=== PATIENT | male | born 1980 | race Caucasian/White ===

== ENCOUNTER 2019-03-25 19:33 | Inpatient (IN) | payer MEDICAID, OTHER ==
[~2019-03-25] VITALS: Ht 177.8 cm; Wt 99.0 kg
[2019-03-25 20:13] LABS: BASOPHILS % (AUTO) 0.3 % (0.0-2.0); EOSINOPHILS % (AUTO) 0.3 % (1.0-6.0); HEMATOCRIT 43.2 % (41-53); HEMOGLOBIN 14.5 g/dL (13.5-17.5); LYMPHOCYTES # (AUTO) 1.4 K/uL (1.0-4.8); LYMPHOCYTES % (AUTO) 11.1 % (22.0-44.0); MEAN CORPUSCULAR HEMOGLOBIN 29.2 pg (26.0-34.0); MEAN CORPUSCULAR HGB CONC 33.5 G/dL (31.0-37.0); MEAN CORPUSCULAR VOLUME 87 fL (80-100); MONOCYTES % (AUTO) 8.1 % (2.0-9.0); NEUTROPHILS # (AUTO) 9.9 K/uL (1.8-7.7); NEUTROPHILS % (AUTO) 80.2 % (40.0-70.0); PLATELET COUNT (AUTO) 233 K/uL (150-450); RED BLOOD CELL COUNT(AUTO) 4.97 MIL/uL (4.50-5.90); RED CELL DISTRIBUTION WIDTH 13.6 % (11.5-14.5)
[2019-03-25 20:23] LABS: ANION GAP 6 mmol/L (8-16); CALCIUM, TOTAL 9.4 mg/dL (8.8-10.5); CARBON DIOXIDE 32 mmol/L (22-29); CHLORIDE 102 mmol/L (98-107); CREATININE 1.48 mg/dL (0.60-1.30); GLOMERULAR FILTR. RATE CALC 53 mL/min (>60); GLUCOSE,RANDOM 98 mg/dL (70-110); POTASSIUM 3.6 mmol/L (3.5-5.1); SODIUM SERUM 140 mmol/L (136-145); UREA NITROGEN, BLOOD 21 mg/dL (7-18)
[2019-03-25] MEDS ORDERED: ESCI10TA PO (20:23)
[2019-03-25] MEDS ORDERED: RISP.5 PO (20:23)
[2019-03-25 20:29] LABS: ALANINE AMINOTRANSFERASE 66 U/L (12-78); ALKALINE PHOSPHATASE 197 U/L (46-116); ASPARTATE AMINOTRANSFERASE 41 U/L (15-37); BILIRUBIN,TOTAL 0.8 mg/dL (0.1-1.0); TOTAL PROTEIN, SERUM 8.2 g/dL (6.4-8.2)
[2019-03-25 21:06] LABS: AMPHET/METH SCREEN,URINE NEGATIVE (NEGATIVE); BARBITURATE SCREEN, URINE NEGATIVE (NEGATIVE); BENZODIAZEPINES SCREEN,URINE NEGATIVE (NEGATIVE); CANNABINOID SCREEN,URINE NEGATIVE (NEGATIVE); COCAINE SCREEN,URINE NEGATIVE (NEGATIVE); METHADONE SCREEN, URINE NEGATIVE (NEGATIVE); OPIATE SCREEN,URINE NEGATIVE (NEGATIVE); PHENCYCLIDINE SCREEN,URINE NEGATIVE (NEGATIVE)
[2019-03-26 03:15] VITALS: BP 146/86
[2019-03-26] MEDS ORDERED: DOCUSATE SODIUM 100 MG CAPSULE PO PRN (07:15)
[2019-03-26] MEDS ORDERED: MAG HYDROX/AL HYDROX/SIMETH ES 30 ML SUSPENSION UDCUP PO PRN (07:15)
[2019-03-26] MEDS ORDERED: MAGNESIUM HYDROXIDE SUSPENSION 30 ML UDCUP PO PRN (07:15)
[2019-03-26] MEDS ORDERED: PETROLATUM,WHITE 28 GM JELLY TP PRN (07:15)
[2019-03-26] MEDS ORDERED: LOPERAMIDE HCL 2 MG CAPSULE PO PRN (07:15)
[2019-03-26] MEDS ORDERED: ACETAMINOPHEN 325 MG TABLET PO PRN (07:15)
[2019-03-26] MEDS ORDERED: ONDANSETRON HCL 4 MG TABLET PO PRN (07:15)
[2019-03-26] MEDS ORDERED: GuaiFENesin/D-METHORPHAN [SUGAR-FREE] 200-20MG/10 ML SYRUP UDCUP PO PRN (07:15)
[2019-03-26] MEDS ORDERED: CloNIDine HCL 0.1 MG TABLET PO PRN (07:15)
[2019-03-26] MEDS ORDERED: IBUPROFEN 400 MG TABLET PO PRN (07:15)
[2019-03-26] MEDS ORDERED: ALBUTEROL SULFATE HFA 90 MCG/PUFF 8 GM INHALER IH PRN (07:15)
[2019-03-26] MEDS: BACITRACIN 28.4 GM OINTMENT TP SCH ×2 (08:52→17:05)
[2019-03-26 09:33] VITALS: BP 140/95
[2019-03-26 16:00] VITALS: BP 138/88
[2019-03-27 06:38] VITALS: BP 140/71
[2019-03-27 08:51] LABS: ALANINE AMINOTRANSFERASE 50 U/L (12-78); ALBUMIN 3.4 g/dL (3.4-5.0); ALKALINE PHOSPHATASE 173 U/L (46-116); ANION GAP 7 mmol/L (8-16); ASPARTATE AMINOTRANSFERASE 36 U/L (15-37); BILIRUBIN,TOTAL 0.6 mg/dL (0.1-1.0); CALCIUM, TOTAL 8.8 mg/dL (8.8-10.5); CARBON DIOXIDE 35 mmol/L (22-29); CHLORIDE 103 mmol/L (98-107); CHOL/HDL RATIO 6.3 (4.2-7.3); CHOLESTEROL 219 mg/dL (131-200); CREATININE 1.14 mg/dL (0.60-1.30); GLOMERULAR FILTR. RATE CALC > 60 mL/min (>60); GLUCOSE,RANDOM 103 mg/dL (70-110); HDL CHOLESTEROL 35 mg/dL (40-60); LDL CHOL (CALC.) 149 mg/dL (0-130); POTASSIUM 3.4 mmol/L (3.5-5.1); SODIUM SERUM 145 mmol/L (136-145); THYROID STIMULATING HORMONE 2.15 uIU/mL (0.36-3.74); TOTAL PROTEIN, SERUM 7.1 g/dL (6.4-8.2); TRIGLYCERIDES 176 mg/dL (15-150); UREA NITROGEN, BLOOD 12 mg/dL (7-18)
[2019-03-27 08:56] VITALS: BP 149/78
[2019-03-27] MEDS: BACITRACIN 28.4 GM OINTMENT TP SCH ×2 (09:06→16:28)
[2019-03-27] MEDS: BuPROPion HCL XL 150 MG ER TABLET PO SCH (10:41)
[2019-03-27] MEDS: OLANZapine 5 MG TABLET PO SCH ×2 (10:41→16:28)
[2019-03-27 16:00] VITALS: BP 136/87
[2019-03-27] MEDS: LORazepam 2 MG TABLET PO PRN (16:28)
[2019-03-28 06:46] VITALS: BP_SYST 127; BP_SYST 136; BP_DIAS 77; BP_DIAS 82
[2019-03-28 08:32] VITALS: BP 137/79
[2019-03-28] MEDS: BuPROPion HCL XL 150 MG ER TABLET PO SCH (08:32)
[2019-03-28] MEDS: BACITRACIN 28.4 GM OINTMENT TP SCH ×2 (08:32→16:53)
[2019-03-28] MEDS: OLANZapine 5 MG TABLET PO SCH ×2 (08:32→16:53)
[2019-03-28 16:02] VITALS: BP 138/89
[2019-03-28] MEDS: LORazepam 2 MG TABLET PO PRN (16:53)
[2019-03-29 00:34] VITALS: BP 141/97
[2019-03-29 08:30] VITALS: BP 132/82
[2019-03-29] MEDS: BuPROPion HCL XL 150 MG ER TABLET PO SCH (09:05)
[2019-03-29] MEDS: BACITRACIN 28.4 GM OINTMENT TP SCH ×2 (09:05→16:43)
[2019-03-29] MEDS: OLANZapine 5 MG TABLET PO SCH (09:05)
[2019-03-29 16:19] VITALS: BP 140/84
[2019-03-29] MEDS: OLANZapine 7.5 MG TABLET PO SCH (16:42)
[2019-03-29] MEDS: LORazepam 2 MG TABLET PO PRN (16:43)
[2019-03-29] MEDS: ZOLPIDEM TARTRATE 10 MG TABLET PO PRN (21:38)
[2019-03-30 05:46] VITALS: BP 143/74
[2019-03-30 08:02] VITALS: BP 131/76
[2019-03-30 08:09] LABS: BASOPHILS % (AUTO) 0.3 % (0.0-2.0); EOSINOPHILS % (AUTO) 3.7 % (1.0-6.0); HEMATOCRIT 42.1 % (41-53); HEMOGLOBIN 13.9 g/dL (13.5-17.5); LYMPHOCYTES # (AUTO) 2.5 K/uL (1.0-4.8); LYMPHOCYTES % (AUTO) 35.1 % (22.0-44.0); MEAN CORPUSCULAR HEMOGLOBIN 29.5 pg (26.0-34.0); MEAN CORPUSCULAR VOLUME 89 fL (80-100); MONOCYTES # (AUTO) 0.5 K/uL (0.1-1.0); MONOCYTES % (AUTO) 6.6 % (2.0-9.0); NEUTROPHILS # (AUTO) 3.8 K/uL (1.8-7.7); NEUTROPHILS % (AUTO) 54.3 % (40.0-70.0); PLATELET COUNT (AUTO) 188 K/uL (150-450); RED BLOOD CELL COUNT(AUTO) 4.71 MIL/uL (4.50-5.90); RED CELL DISTRIBUTION WIDTH 13.5 % (11.5-14.5)
[2019-03-30] MEDS: OLANZapine 7.5 MG TABLET PO SCH (09:30)
[2019-03-30] MEDS: BuPROPion HCL XL 150 MG ER TABLET PO SCH (09:30)
[2019-03-30] MEDS: BACITRACIN 28.4 GM OINTMENT TP SCH ×2 (09:30→16:45)
[2019-03-30 16:13] VITALS: BP 135/89
[2019-03-30] MEDS: OLANZapine 10 MG TABLET PO SCH (16:46)
[2019-03-30] MEDS: HALOPERIDOL 5 MG TABLET PO PRN (16:46)
[2019-03-30] MEDS: LORazepam 2 MG TABLET PO PRN (16:46)
[2019-03-31 05:20] VITALS: BP 101/61
[2019-03-31 05:56] VITALS: BP 128/83
[2019-03-31 08:17] VITALS: BP 125/74
[2019-03-31] MEDS: OLANZapine 10 MG TABLET PO SCH ×2 (08:50→16:52)
[2019-03-31] MEDS: BuPROPion HCL XL 150 MG ER TABLET PO SCH (08:50)
[2019-03-31] MEDS: BACITRACIN 28.4 GM OINTMENT TP SCH ×2 (08:51→16:55)
[2019-03-31 16:20] VITALS: BP 133/86
[2019-03-31] MEDS: LORazepam 2 MG TABLET PO PRN (16:52)
[2019-03-31] MEDS: HALOPERIDOL 5 MG TABLET PO PRN (18:58)
[2019-03-31 19:05] VITALS: BP 140/82
[2019-03-31] MEDS: ZOLPIDEM TARTRATE 10 MG TABLET PO PRN (20:50)
[2019-04-01 06:14] VITALS: BP 107/65
[2019-04-01 08:00] VITALS: BP 111/63
[2019-04-01] MEDS: BuPROPion HCL XL 150 MG ER TABLET PO SCH (09:17)
[2019-04-01] MEDS: OLANZapine 10 MG TABLET PO SCH ×2 (09:17→16:52)
[2019-04-01] MEDS: BACITRACIN 28.4 GM OINTMENT TP SCH ×2 (09:18→16:52)
[2019-04-01] MEDS: LORazepam 2 MG TABLET PO PRN (14:46)
[2019-04-01 18:00] VITALS: BP 108/74
[2019-04-01] MEDS: ZOLPIDEM TARTRATE 10 MG TABLET PO PRN (20:42)
[2019-04-02 06:06] VITALS: BP 108/68
[2019-04-02 08:46] VITALS: BP 113/71
[2019-04-02] MEDS: OLANZapine 10 MG TABLET PO SCH (08:50)
[2019-04-02] MEDS ORDERED: BUPR-93 PO (08:50)
[2019-04-02] MEDS: BuPROPion HCL XL 150 MG ER TABLET PO SCH (08:50)
[2019-04-02] MEDS ORDERED: OLAN10TA3 PO (08:50)
[2019-04-02] MEDS: BACITRACIN 28.4 GM OINTMENT TP SCH (08:50)
== END 2019-04-02 10:10 | disposition home or self-care (01) | DRG 750 ==
LOC: EMS 19:35 → B3A 03-26 01:05
PROVIDERS: ADMIT Psychiatry & Neurology Psychiatry; ATTEND Psychiatry & Neurology Psychiatry
DX: F20.0 Paranoid schizophrenia (principal); R74.0 Nonspecific elevation of levels of transaminase and lactic acid dehydrogenase [LDH]; D72.829 Elevated white blood cell count, unspecified; F32.9 Major depressive disorder, single episode, unspecified; Z91.19 Patient's noncompliance with other medical treatment and regimen; Z79.899 Other long term (current) drug therapy
CPT/HCPCS: 84443; G0480

== ENCOUNTER 2019-05-03 18:51 | Emergency (ER) | payer MEDICAID, OTHER ==
[~2019-05-03] VITALS: Ht 177.8 cm; Wt 98.0 kg
[~2019-05-03 18:51] MED LIST: BUPR-93 PO; OLAN10TA3 PO
[2019-05-03] MEDS ORDERED: HYDR-4031 PO (19:02)
[2019-05-03] MEDS ORDERED: BENZ1TAB10 PO (19:02)
[2019-05-03] MEDS ORDERED: RISP3 PO (19:02)
[2019-05-03] MEDS ORDERED: ELVI1TAB3 PO (19:02)
[2019-05-03] MEDS ORDERED: TRAZ150 PO (19:02)
[2019-05-03 22:31] LABS: BASOPHILS % (AUTO) 0.4 % (0.0-2.0); EOSINOPHILS % (AUTO) 2.1 % (1.0-6.0); HEMATOCRIT 42.2 % (41-53); HEMOGLOBIN 13.9 g/dL (13.5-17.5); LYMPHOCYTES # (AUTO) 2.7 K/uL (1.0-4.8); LYMPHOCYTES % (AUTO) 38.6 % (22.0-44.0); MEAN CORPUSCULAR HEMOGLOBIN 29.1 pg (26.0-34.0); MEAN CORPUSCULAR HGB CONC 32.9 G/dL (31.0-37.0); MEAN CORPUSCULAR VOLUME 89 fL (80-100); MONOCYTES # (AUTO) 0.6 K/uL (0.1-1.0); MONOCYTES % (AUTO) 8.3 % (2.0-9.0); NEUTROPHILS # (AUTO) 3.5 K/uL (1.8-7.7); NEUTROPHILS % (AUTO) 50.6 % (40.0-70.0); PLATELET COUNT (AUTO) 169 K/uL (150-450); RED BLOOD CELL COUNT(AUTO) 4.77 MIL/uL (4.50-5.90); RED CELL DISTRIBUTION WIDTH 14.2 % (11.5-14.5)
[2019-05-03 22:44] LABS: ANION GAP 2 mmol/L (8-16); CALCIUM, TOTAL 9.3 mg/dL (8.8-10.5); CARBON DIOXIDE 30 mmol/L (22-29); CHLORIDE 103 mmol/L (98-107); CREATININE 1.22 mg/dL (0.60-1.30); GLOMERULAR FILTR. RATE CALC > 60 mL/min (>60); GLUCOSE,RANDOM 100 mg/dL (70-110); POTASSIUM 3.5 mmol/L (3.5-5.1); SODIUM SERUM 135 mmol/L (136-145); UREA NITROGEN, BLOOD 10 mg/dL (7-18)
[2019-05-03 22:50] LABS: ALANINE AMINOTRANSFERASE 48 U/L (12-78); ALBUMIN 3.5 g/dL (3.4-5.0); ALKALINE PHOSPHATASE 167 U/L (46-116); ASPARTATE AMINOTRANSFERASE 23 U/L (15-37); BILIRUBIN,TOTAL 0.4 mg/dL (0.1-1.0); TOTAL PROTEIN, SERUM 7.6 g/dL (6.4-8.2)
[2019-05-04] MEDS ORDERED: LORazepam 2 MG/ML VIAL IM ONE (00:30)
[2019-05-04] MEDS ORDERED: DiphenhydrAMINE HCL 50 MG/ML VIAL IM ONE (00:30)
[2019-05-04] MEDS ORDERED: HALOPERIDOL LACTATE 5 MG/ML VIAL IM ONE (00:30)
[2019-05-04 01:55] VITALS: BP 142/80
== END 2019-05-04 02:00 | disposition home or self-care (01) ==
LOC: EMS 18:52
DX: F41.9 Anxiety disorder, unspecified (principal); G47.00 Insomnia, unspecified
CPT/HCPCS: 36415; 80053; 85025; 96372; 99284; G0480; J1200; J1630; J2060

== ENCOUNTER 2022-01-16 16:59 | Inpatient (IN) | payer MEDICAID ==
[~2022-01-16] VITALS: Ht 177.8 cm; Wt 82.7 kg
[~2022-01-16 16:59] MED LIST changes: +BENZ1TAB96 PO; -BUPR-93 PO; +ELVI1TAB3 PO; +HYDR-4808 PO; -OLAN10TA3 PO; +RISP3TAB35 PO; +TRAZ150T80 PO
[2022-01-16] MEDS ORDERED: ACETAMINOPHEN 325 MG TABLET PO PRN (19:15)
[2022-01-16] MEDS ORDERED: HALOPERIDOL 5 MG TABLET PO PRN (19:15)
[2022-01-16] MEDS ORDERED: LORazepam 2 MG TABLET PO PRN (19:15)
[2022-01-16 19:38] VITALS: BP 135/89
[2022-01-17 02:16] LABS: GLUCOMETER DEV NAME(LOC) POC.BV
[2022-01-17 06:41] VITALS: BP 130/78
[2022-01-17 07:13] LABS: BASOPHILS % (AUTO) 0.3 % (0.0-2.0); EOSINOPHILS % (AUTO) 0.1 % (1.0-6.0); HEMATOCRIT 45.5 % (41-53); HEMOGLOBIN 15.6 g/dL (13.5-17.5); LYMPHOCYTES # (AUTO) 1.8 K/uL (1.0-4.8); LYMPHOCYTES % (AUTO) 17.3 % (22.0-44.0); MEAN CORPUSCULAR HEMOGLOBIN 30.4 pg (26.0-34.0); MEAN CORPUSCULAR HGB CONC 34.2 G/dL (31.0-37.0); MEAN CORPUSCULAR VOLUME 89 fL (80-100); MONOCYTES # (AUTO) 0.7 K/uL (0.1-1.0); MONOCYTES % (AUTO) 6.4 % (2.0-9.0); NEUTROPHILS # (AUTO) 7.9 K/uL (1.8-7.7); NEUTROPHILS % (AUTO) 75.9 % (40.0-70.0); PLATELET COUNT (AUTO) 208 K/uL (150-450); RED BLOOD CELL COUNT(AUTO) 5.11 MIL/uL (4.50-5.90); RED CELL DISTRIBUTION WIDTH 14.4 % (11.5-14.5)
[2022-01-17 07:35] LABS: ALANINE AMINOTRANSFERASE 56 U/L (12-78); ALBUMIN 4.2 g/dL (3.4-5.0); ALKALINE PHOSPHATASE 187 U/L (46-116); ANION GAP 7 mmol/L (8-16); ASPARTATE AMINOTRANSFERASE 36 U/L (15-37); BILIRUBIN,TOTAL 0.8 mg/dL (0.1-1.0); CALCIUM, TOTAL 9.5 mg/dL (8.8-10.5); CARBON DIOXIDE 31 mmol/L (22-29); CHLORIDE 97 mmol/L (98-107); CHOL/HDL RATIO 3.9 (4.2-7.3); CHOLESTEROL 234 mg/dL (131-200); CREATININE 0.89 mg/dL (0.60-1.30); FREE T4 (FREE THYROXINE) 1.33 ng/dL (0.76-1.46); GLOMERULAR FILTR. RATE CALC > 60 mL/min (>60); GLUCOSE,RANDOM 118 mg/dL (70-110); HDL CHOLESTEROL 60 mg/dL (40-60); LDL CHOL (CALC.) 158 mg/dL (0-130); POTASSIUM 3.9 mmol/L (3.5-5.1); SODIUM SERUM 135 mmol/L (136-145); THYROID STIMULATING HORMONE 1.36 uIU/mL (0.36-3.74); TOTAL PROTEIN, SERUM 8.8 g/dL (6.4-8.2); TRIGLYCERIDES 79 mg/dL (15-150); UREA NITROGEN, BLOOD 13 mg/dL (7-18)
[2022-01-17 08:35] VITALS: BP 148/100
[2022-01-17] MEDS ORDERED: HALOPERIDOL LACTATE 5 MG/ML VIAL ONE (09:48)
[2022-01-17] MEDS ORDERED: DiphenhydrAMINE HCL 50 MG/ML VIAL ONE (09:48)
[2022-01-17] MEDS ORDERED: LORazepam 2 MG/ML VIAL ONE (09:48)
[2022-01-17] MEDS ORDERED: DiphenhydrAMINE HCL 50 MG/ML VIAL IM ONE (10:15)
[2022-01-17] MEDS ORDERED: LORazepam 2 MG/ML VIAL IM ONE (10:15)
[2022-01-17] MEDS ORDERED: HALOPERIDOL LACTATE 5 MG/ML VIAL IM ONE (10:15)
[2022-01-17] MEDS ORDERED: OMEPRAZOLE 20 MG CAPSULE PO PRN (12:15)
[2022-01-17] MEDS ORDERED: ALBUTEROL SULFATE HFA 90 MCG/PUFF 8 GM INHALER IH PRN (12:15)
[2022-01-17] MEDS ORDERED: ELVITEG/COB/EMTRI/TENOF ALAFEN 150-150-200-10MG TABLET PO SCH (12:15)
[2022-01-17] MEDS ORDERED: IBUPROFEN 600 MG TABLET PO PRN (12:15)
[2022-01-17] MEDS ORDERED: BACITRACIN 28 GM OINTMENT TP PRN (12:15)
[2022-01-17] MEDS ORDERED: DOCUSATE SODIUM 100 MG CAPSULE PO PRN (12:15)
[2022-01-17] MEDS ORDERED: ONDANSETRON HCL 4 MG TABLET PO PRN (12:15)
[2022-01-17] MEDS ORDERED: LOPERAMIDE HCL 2 MG CAPSULE PO PRN (12:15)
[2022-01-17] MEDS ORDERED: ACETAMINOPHEN 325 MG TABLET PO PRN (12:15)
[2022-01-17] MEDS ORDERED: MAG HYDROX/AL HYDROX/SIMETH ES 30 ML SUSPENSION UDCUP PO PRN (12:15)
[2022-01-17] MEDS ORDERED: PETROLATUM,WHITE 28 GM JELLY TP PRN (12:15)
[2022-01-17] MEDS ORDERED: MAGNESIUM HYDROXIDE SUSPENSION 30 ML UDCUP PO PRN (12:15)
[2022-01-17] MEDS ORDERED: BENZOCAINE/MENTHOL LOZENGE PO PRN (12:15)
[2022-01-17] MEDS ORDERED: CloNIDine HCL 0.1 MG TABLET PO PRN (12:15)
[2022-01-17] MEDS ORDERED: OMEP20CA12 PO (12:37)
[2022-01-17] MEDS ORDERED: GABA-1181 PO (12:37)
[2022-01-17] MEDS ORDERED: DOLU1TAB2 PO (12:37)
[2022-01-17] MEDS ORDERED: RISP2TAB45 PO (12:37)
[2022-01-17] MEDS: DOLUTEGRAVIR SODIUM 50 MG TABLET PO SCH (16:31)
[2022-01-17 17:19] VITALS: BP 126/79
[2022-01-17] MEDS: RisperiDONE 3 MG TABLET PO SCH (20:17)
[2022-01-18 01:08] VITALS: BP 131/80
[2022-01-18 08:32] VITALS: BP 121/80
[2022-01-18] MEDS: DOLUTEGRAVIR SODIUM 50 MG TABLET PO SCH (09:25)
[2022-01-18] MEDS: RisperiDONE 3 MG TABLET PO SCH ×2 (09:25→20:26)
[2022-01-18 16:17] VITALS: BP 105/67
[2022-01-18] MEDS: ZOLPIDEM TARTRATE 10 MG TABLET PO PRN (21:37)
[2022-01-19 01:04] VITALS: BP 129/77
[2022-01-19 08:09] VITALS: BP 116/66
[2022-01-19] MEDS: DOLUTEGRAVIR SODIUM 50 MG TABLET PO SCH (08:32)
[2022-01-19] MEDS: RisperiDONE 3 MG TABLET PO SCH ×2 (08:33→20:24)
[2022-01-19 16:20] VITALS: BP 104/67
[2022-01-19] MEDS: ZOLPIDEM TARTRATE 10 MG TABLET PO PRN (20:24)
[2022-01-19] MEDS ORDERED: RISP3TAB63 PO (21:00)
[2022-01-20] VITALS: BP 120/82
[2022-01-20 07:27] LABS: HEMOGLOBIN 13.6 g/dL (13.5-17.5); MEAN CORPUSCULAR HEMOGLOBIN 30.5 pg (26.0-34.0); MEAN CORPUSCULAR VOLUME 90 fL (80-100); PLATELET COUNT (AUTO) 165 K/uL (150-450); RED BLOOD CELL COUNT(AUTO) 4.47 MIL/uL (4.50-5.90); RED CELL DISTRIBUTION WIDTH 14.2 % (11.5-14.5)
[2022-01-20 07:45] LABS: ANION GAP 3 mmol/L (8-16); CALCIUM, TOTAL 8.6 mg/dL (8.8-10.5); CARBON DIOXIDE 32 mmol/L (22-29); CHLORIDE 101 mmol/L (98-107); CREATININE 1.15 mg/dL (0.60-1.30); GLOMERULAR FILTR. RATE CALC > 60 mL/min (>60); GLUCOSE,RANDOM 83 mg/dL (70-110); PHOSPHORUS 3.9 mg/dL (2.5-4.9); POTASSIUM 3.4 mmol/L (3.5-5.1); SODIUM SERUM 136 mmol/L (136-145); UREA NITROGEN, BLOOD 20 mg/dL (7-18)
[2022-01-20 08:18] LABS: BAND NEUTROPHILS % (MANUAL) 1 % (0-5); LYMPHOCYTES % (MANUAL) 19 % (22-44); MONOCYTES % (MANUAL) 5 % (2-9); SEGMENTED NEUTROPHILS % 75 % (40-70)
[2022-01-20 08:25] VITALS: BP 152/65
[2022-01-20] MEDS: RisperiDONE 3 MG TABLET PO SCH (08:29)
[2022-01-20] MEDS: DOLUTEGRAVIR SODIUM 50 MG TABLET PO SCH (08:29)
[2022-01-20] MEDS ORDERED: ELVI1TAB3 PO (21:47)
[2022-01-20] MEDS ORDERED: EPIV100 PO (21:47)
== END 2022-01-20 12:00 | disposition home or self-care (01) | DRG 750 ==
LOC: B2S 19:05
PROVIDERS: ADMIT Psychiatry & Neurology Psychiatry; ATTEND Psychiatry & Neurology Psychiatry
DX: F25.9 Schizoaffective disorder, unspecified (principal); E78.5 Hyperlipidemia, unspecified; F41.9 Anxiety disorder, unspecified; Z20.822 Contact with and (suspected) exposure to COVID-19; G47.00 Insomnia, unspecified; I10 Essential (primary) hypertension; F15.10 Other stimulant abuse, uncomplicated; F12.10 Cannabis abuse, uncomplicated; K59.00 Constipation, unspecified; Z72.89 Other problems related to lifestyle; Z71.51 Drug abuse counseling and surveillance of drug abuser
CPT/HCPCS: 80048; 80053; 80061; 83735; 84100; 84439; 84443; 85007; 85025; 85027; J1200; J1630; J2060; Q9967

== ENCOUNTER 2022-05-16 08:30 | Inpatient (IN) | payer MEDICAID, OTHER ==
[~2022-05-16] VITALS: Ht 180.3 cm; Wt 85.9 kg
[~2022-05-16 08:30] MED LIST changes: -BENZ1TAB96 PO; +DOLU1TAB2 PO; +EPIV100 PO; -HYDR-4808 PO; -RISP3TAB35 PO; +RISP3TAB63 PO; -TRAZ150T80 PO
[2022-05-16 09:02] LABS: BASOPHILS % (AUTO) 0.1 % (0.0-2.0); EOSINOPHILS % (AUTO) 0 % (1.0-6.0); HEMATOCRIT 47.1 % (41-53); LYMPHOCYTES # (AUTO) 1.5 K/uL (1.0-4.8); LYMPHOCYTES % (AUTO) 10.3 % (22.0-44.0); MEAN CORPUSCULAR VOLUME 88 fL (80-100); MONOCYTES # (AUTO) 1.4 K/uL (0.1-1.0); MONOCYTES % (AUTO) 9.7 % (2.0-9.0); NEUTROPHILS # (AUTO) 11.5 K/uL (1.8-7.7); NEUTROPHILS % (AUTO) 79.9 % (40.0-70.0); PLATELET COUNT (AUTO) 174 K/uL (150-450); RED BLOOD CELL COUNT(AUTO) 5.33 MIL/uL (4.50-5.90); RED CELL DISTRIBUTION WIDTH 14.9 % (11.5-14.5)
[2022-05-16 09:23] LABS: ANION GAP 11 mmol/L (8-16); CALCIUM, TOTAL 10.4 mg/dL (8.8-10.5); CARBON DIOXIDE 28 mmol/L (22-29); CHLORIDE 100 mmol/L (98-107); CREATININE 1.32 mg/dL (0.60-1.30); GLUCOSE,RANDOM 128 mg/dL (70-110); POTASSIUM 4.3 mmol/L (3.5-5.1); SODIUM SERUM 139 mmol/L (136-145); UREA NITROGEN, BLOOD 18 mg/dL (7-18)
[2022-05-16 09:25] LABS: GLOMERULAR FILTR. RATE CALC 60 mL/min (>60)
[2022-05-16 09:29] LABS: ALANINE AMINOTRANSFERASE 57 U/L (12-78); ALBUMIN 4.3 g/dL (3.4-5.0); ALKALINE PHOSPHATASE 202 U/L (46-116); ASPARTATE AMINOTRANSFERASE 77 U/L (15-37); BILIRUBIN,TOTAL 1.2 mg/dL (0.1-1.0)
[2022-05-16 09:47] LABS: COVID AG,FIA SOURCE NASOPHARYNGEAL
[2022-05-16] MEDS ORDERED: HALOPERIDOL 5 MG TABLET PO ONE (10:15)
[2022-05-16] MEDS ORDERED: DIAZEPAM 5 MG TABLET PO ONE (10:15)
[2022-05-17] MEDS: HALOPERIDOL 5 MG TABLET PO PRN ×3 (03:10→19:45)
[2022-05-17] MEDS: LORazepam 2 MG TABLET PO PRN ×3 (03:10→19:45)
[2022-05-17] MEDS: ZOLPIDEM TARTRATE 10 MG TABLET PO PRN ×2 (03:10→20:27)
[2022-05-17 12:30] VITALS: BP 139/60
[2022-05-17 16:00] VITALS: BP 134/80
[2022-05-18 07:40] LABS: APPEARANCE,URINE CLEAR (CLEAR); BILIRUBIN,URINE NEGATIVE (NEGATIVE); GLUCOSE, URINE (UA) TRACE mg/dL (NEGATIVE); KETONES,URINE NEGATIVE (NEGATIVE); LEUKOCYTE ESTERASE ,URINE NEGATIVE (NEGATIVE); NITRATE,URINE NEGATIVE (NEGATIVE); OCCULT BLOOD,URINE NEGATIVE (NEGATIVE); PROTEIN,URINE TRACE mg/dL (NEGATIVE); SPECIFIC GRAVITIY, URINE 1.021 (1.003-1.030); UROBILINOGEN,URINE <=1.0 mg/dL (<=1.0)
[2022-05-18 07:46] LABS: AMPHET/METH SCREEN,URINE POSITIVE (NEGATIVE); BARBITURATE SCREEN, URINE NEGATIVE (NEGATIVE); BENZODIAZEPINES SCREEN,URINE POSITIVE (NEGATIVE); CANNABINOID SCREEN,URINE NEGATIVE (NEGATIVE); COCAINE SCREEN,URINE NEGATIVE (NEGATIVE); METHADONE SCREEN, URINE NEGATIVE (NEGATIVE); OPIATE SCREEN,URINE NEGATIVE (NEGATIVE)
[2022-05-18 07:49] LABS: PHENCYCLIDINE SCREEN,URINE NEGATIVE (NEGATIVE)
[2022-05-18 08:00] LABS: BACTERIA,URINE None Seen /HPF (None Seen); RBC,URINE 0-2 /HPF (0-2); WBC,URINE None Seen /HPF (0-5)
[2022-05-18 09:13] VITALS: BP 122/77
[2022-05-18] MEDS: LORazepam 2 MG TABLET PO PRN ×2 (09:36→16:35)
[2022-05-18] MEDS: DOLUTEGRAVIR SODIUM 50 MG TABLET PO SCH (13:51)
[2022-05-18] MEDS: HALOPERIDOL 5 MG TABLET PO PRN (16:35)
[2022-05-18] MEDS ORDERED: OMEPRAZOLE 10 MG CAPSULE PO ONE (20:15)
[2022-05-18] MEDS ORDERED: IBUPROFEN 600 MG TABLET PO PRN (21:00)
[2022-05-18] MEDS ORDERED: LOPERAMIDE HCL 2 MG CAPSULE PO PRN (21:00)
[2022-05-18] MEDS ORDERED: BACITRACIN 28 GM OINTMENT TP PRN (21:00)
[2022-05-18] MEDS ORDERED: MAG HYDROX/AL HYDROX/SIMETH ES 30 ML SUSPENSION UDCUP PO PRN (21:00)
[2022-05-18] MEDS ORDERED: BENZOCAINE/MENTHOL LOZENGE PO PRN (21:00)
[2022-05-18] MEDS ORDERED: CloNIDine HCL 0.1 MG TABLET PO PRN (21:00)
[2022-05-18] MEDS ORDERED: ACETAMINOPHEN 325 MG TABLET PO PRN (21:00)
[2022-05-18] MEDS ORDERED: MAGNESIUM HYDROXIDE SUSPENSION 30 ML UDCUP PO PRN (21:00)
[2022-05-18] MEDS ORDERED: PETROLATUM,WHITE 28 GM JELLY TP PRN (21:00)
[2022-05-18] MEDS ORDERED: ONDANSETRON HCL 4 MG TABLET PO PRN (21:00)
[2022-05-18] MEDS ORDERED: ALBUTEROL SULFATE HFA 90 MCG/PUFF 8 GM INHALER IH PRN (21:00)
[2022-05-18] MEDS ORDERED: DOCUSATE SODIUM 100 MG CAPSULE PO PRN (21:00)
[2022-05-19] MEDS: OMEPRAZOLE 10 MG CAPSULE PO SCH (06:24)
[2022-05-19 08:00] VITALS: BP 110/71
[2022-05-19] MEDS: DOLUTEGRAVIR SODIUM 50 MG TABLET PO SCH (08:27)
[2022-05-19] MEDS: RisperiDONE 3 MG TABLET PO SCH ×2 (08:27→16:13)
[2022-05-19] MEDS: LORazepam 2 MG TABLET PO PRN (14:18)
[2022-05-19 16:15] VITALS: BP 139/84
[2022-05-19] MEDS: ZOLPIDEM TARTRATE 10 MG TABLET PO PRN (20:10)
[2022-05-20] MEDS: OMEPRAZOLE 10 MG CAPSULE PO SCH (06:26)
[2022-05-20] MEDS: DOLUTEGRAVIR SODIUM 50 MG TABLET PO SCH (08:55)
[2022-05-20] MEDS: RisperiDONE 3 MG TABLET PO SCH (08:55)
[2022-05-20 10:13] VITALS: BP 110/67
[2022-05-20] MEDS ORDERED: RISP3TAB63 PO (10:31)
[2022-05-20] MEDS ORDERED: DOLU50TA PO (10:54)
[2022-05-20] MEDS ORDERED: OMEP10 PO (10:55)
== END 2022-05-20 12:25 | disposition home or self-care (01) | DRG 750 ==
LOC: EMS 08:30 → 3EI 05-17 11:41
PROVIDERS: ADMIT Psychiatry & Neurology Psychiatry; ATTEND Psychiatry & Neurology Psychiatry
DX: F25.9 Schizoaffective disorder, unspecified (principal); R45.851 Suicidal ideations; Z91.14 Patient's other noncompliance with medication regimen; E78.5 Hyperlipidemia, unspecified; F15.90 Other stimulant use, unspecified, uncomplicated; Z20.822 Contact with and (suspected) exposure to COVID-19; G47.00 Insomnia, unspecified; I10 Essential (primary) hypertension; K59.00 Constipation, unspecified; F41.9 Anxiety disorder, unspecified; Z72.89 Other problems related to lifestyle
CPT/HCPCS: 80053; 80307; 81001; 85025; 99285; G0480

== ENCOUNTER 2023-08-31 14:39 | Emergency (ER) | payer OTHER ==
[~2023-08-31] VITALS: Ht 177.8 cm; Wt 86.4 kg
[~2023-08-31 14:39] MED LIST changes: +BENZ1TAB84 PO; -ELVI1TAB3 PO; -EPIV100 PO; +GABA-1181 PO; +HYDR-4808 PO; +OMEP20CA12 PO; +RISP2TAB45 PO; +RISP3TAB35 PO; -RISP3TAB63 PO; +TRAZ-283 PO
[2023-08-31] MEDS ORDERED: LURA80TA2 PO (14:44)
[2023-08-31 14:47] VITALS: BP 144/96; PULSE 74; RESP 18; TEMP 98.5
[2023-08-31] MEDS ORDERED: LORazepam 1 MG TABLET PO ONE (15:30)
[2023-08-31] MEDS ORDERED: HALOPERIDOL 5 MG TABLET PO ONE (15:30)
[2023-08-31 15:37] LABS: BASOPHILS % (AUTO) 0.6 % (0.0-2.0); EOSINOPHILS % (AUTO) 0.7 % (1.0-6.0); HEMATOCRIT 36.4 % (41-53); HEMOGLOBIN 11.8 g/dL (13.5-17.5); LYMPHOCYTES # (AUTO) 1.9 K/uL (1.0-4.8); LYMPHOCYTES % (AUTO) 26.5 % (22.0-44.0); MEAN CORPUSCULAR HEMOGLOBIN 25.5 pg (26.0-34.0); MEAN CORPUSCULAR HGB CONC 32.5 G/dL (31.0-37.0); MEAN CORPUSCULAR VOLUME 78 fL (80-100); MONOCYTES # (AUTO) 0.5 K/uL (0.1-1.0); MONOCYTES % (AUTO) 7.3 % (2.0-9.0); NEUTROPHILS # (AUTO) 4.7 K/uL (1.8-7.7); NEUTROPHILS % (AUTO) 64.9 % (40.0-70.0); PLATELET COUNT (AUTO) 221 K/uL (150-450); RED BLOOD CELL COUNT(AUTO) 4.64 MIL/uL (4.50-5.90); RED CELL DISTRIBUTION WIDTH 15.3 % (11.5-14.5); WHITE BLOOD COUNT (AUTO) 7.2 K/uL (4.5-11.0)
[2023-08-31 15:51] LABS: ANION GAP 12 mmol/L (8-16); CALCIUM, TOTAL 9.3 mg/dL (8.8-10.5); CARBON DIOXIDE 28 mmol/L (22-29); CHLORIDE 100 mmol/L (98-107); CREATININE 1.25 mg/dL (0.60-1.30); GLOMERULAR FILTR. RATE CALC > 60 mL/min (>60); GLUCOSE,RANDOM 98 mg/dL (70-110); POTASSIUM 3.8 mmol/L (3.5-5.1); SODIUM SERUM 140 mmol/L (136-145); UREA NITROGEN, BLOOD 24 mg/dL (7-18)
[2023-08-31 15:54] LABS: PH,URINE DRUG SCREEN 5.5 (5.0-8.0)
[2023-08-31 15:57] LABS: ALANINE AMINOTRANSFERASE 38 U/L (12-78); ALBUMIN 3.7 g/dL (3.4-5.0); ALKALINE PHOSPHATASE 181 U/L (46-116); ASPARTATE AMINOTRANSFERASE 28 U/L (15-37); BILIRUBIN,TOTAL 0.6 mg/dL (0.1-1.0); TOTAL PROTEIN, SERUM 8.3 g/dL (6.4-8.2)
[2023-08-31 16:07] LABS: ALCOHOL, URINE DRUG SCREEN NEGATIVE (NEGATIVE); AMPHET/METH SCREEN,URINE POSITIVE (NEGATIVE); BARBITURATE SCREEN, URINE NEGATIVE (NEGATIVE); BENZODIAZEPINES SCREEN,URINE NEGATIVE (NEGATIVE); CANNABINOID SCREEN,URINE NEGATIVE (NEGATIVE); COCAINE SCREEN,URINE NEGATIVE (NEGATIVE); METHADONE SCREEN, URINE NEGATIVE (NEGATIVE); OPIATE SCREEN,URINE NEGATIVE (NEGATIVE); PHENCYCLIDINE SCREEN,URINE NEGATIVE (NEGATIVE)
[2023-08-31 16:12] LABS: ALCOHOL, BLOOD (SERUM) < 3 mg/dL (0-10)
[2023-08-31] MEDS ORDERED: MELA3TAB89 PO (16:20)
== END 2023-08-31 18:25 | disposition home or self-care (01) ==
LOC: EMS 14:39
DX: F20.9 Schizophrenia, unspecified (principal); F41.9 Anxiety disorder, unspecified; F15.90 Other stimulant use, unspecified, uncomplicated; Z91.148 Patient's other noncompliance with medication regimen for other reason
CPT/HCPCS: 99284; 80053; 85025; 36415; 80307; G0480

== ENCOUNTER 2024-12-07 10:38 | Inpatient (IN) | payer MEDICAID ==
[~2024-12-07] VITALS: Ht 177.8 cm; Wt 89.4 kg
[~2024-12-07 10:38] MED LIST changes: +BENZ-247 PO; -BENZ1TAB84 PO; +LORA0.5T20 PO; +LURA80TA2 PO; +MELA3TAB89 PO; -RISP2TAB45 PO; -RISP3TAB35 PO; -TRAZ-283 PO
[2024-12-07 13:05] LABS: GLUCOMETER DEV NAME(LOC) POC.BV; POC SARS-COV2 AG, FIA NEGATIVE (NEGATIVE)
[2024-12-07 13:15] VITALS: BP 131/78; PULSE 68; RESP 18; TEMP 97.9; O2SAT 100
[2024-12-07] MEDS: LORazepam 2 MG TABLET PO PRN (14:37)
[2024-12-07] MEDS: HALOPERIDOL 5 MG TABLET PO PRN (14:37)
[2024-12-07] MEDS ORDERED: IBUPROFEN 400 MG TABLET PO PRN (15:00)
[2024-12-07] MEDS ORDERED: GuaiFENesin/D-METHORPHAN [SUGAR-FREE] 200-20MG/10 ML SYRUP UDCUP PO PRN (15:00)
[2024-12-07] MEDS ORDERED: NICOTINE 14 MG/24 HOUR PATCH TD PRN (15:00)
[2024-12-07] MEDS ORDERED: ALBUTEROL SULFATE HFA 90 MCG/PUFF 8 GM INHALER IH PRN (15:00)
[2024-12-07] MEDS ORDERED: LOPERAMIDE HCL 2 MG CAPSULE PO PRN (15:00)
[2024-12-07] MEDS ORDERED: DOCUSATE SODIUM 100 MG CAPSULE PO PRN (15:00)
[2024-12-07] MEDS ORDERED: MAGNESIUM HYDROXIDE SUSPENSION 30 ML UDCUP PO PRN (15:00)
[2024-12-07] MEDS ORDERED: PETROLATUM,WHITE 28 GM JELLY TP PRN (15:00)
[2024-12-07] MEDS ORDERED: ONDANSETRON 4 MG TABLET PO PRN (15:00)
[2024-12-07] MEDS ORDERED: CloNIDine HCL 0.1 MG TABLET PO PRN (15:00)
[2024-12-07] MEDS ORDERED: MAG HYDROX/ALUMINUM HYD/SIMETH ES 30 ML SUSPENSION UDCUP PO PRN (15:00)
[2024-12-07] MEDS ORDERED: OMEPRAZOLE 20 MG CAPSULE PO PRN (15:00)
[2024-12-07 20:08] VITALS: BP 140/83; PULSE 71; RESP 16; TEMP 98.4; O2SAT 100
[2024-12-08 08:00] VITALS: BP 137/78; PULSE 68; RESP 18; TEMP 96.6; O2SAT 100
[2024-12-08 08:28] LABS: HEMOGLOBIN A1C 4.9 % (3.8-5.6)
[2024-12-08 08:43] LABS: ALANINE AMINOTRANSFERASE 26 U/L (12-78); ALBUMIN 3.1 g/dL (3.4-5.0); ALKALINE PHOSPHATASE 110 U/L (46-116); ANION GAP 4 mmol/L (8-16); ASPARTATE AMINOTRANSFERASE 28 U/L (15-37); BILIRUBIN,TOTAL 0.5 mg/dL (0.1-1.0); CALCIUM, TOTAL 8.8 mg/dL (8.8-10.5); CARBON DIOXIDE 33 mmol/L (22-29); CHLORIDE 104 mmol/L (98-107); CHOL/HDL RATIO 2.9 (4.2-7.3); CHOLESTEROL 181 mg/dL (131-200); CREATININE 1.13 mg/dL (0.60-1.30); FREE T4 (FREE THYROXINE) 1.18 ng/dL (0.76-1.46); GLOMERULAR FILTR. RATE CALC > 60 mL/min (>60); GLUCOSE,RANDOM 78 mg/dL (70-110); HDL CHOLESTEROL 62 mg/dL (40-60); LDL CHOL (CALC.) 102 mg/dL (0-130); POTASSIUM 3.6 mmol/L (3.5-5.1); SODIUM SERUM 141 mmol/L (136-145); T4 (THYROXINE) 7.2 mcg/dL (4.7-13.3); THYROID STIMULATING HORMONE 0.57 uIU/mL (0.36-3.74); TOTAL PROTEIN, SERUM 6.5 g/dL (6.4-8.2); TRIGLYCERIDES 85 mg/dL (15-150); UREA NITROGEN, BLOOD 23 mg/dL (7-18)
[2024-12-08 09:11] LABS: BASOPHILS % (AUTO) 0.7 % (0.0-2.0); EOSINOPHILS % (AUTO) 2.6 % (1.0-6.0); HEMATOCRIT 31.7 % (41-53); LYMPHOCYTES # (AUTO) 0.8 K/uL (1.0-4.8); LYMPHOCYTES % (AUTO) 9.9 % (22.0-44.0); MEAN CORPUSCULAR HEMOGLOBIN 24.6 pg (26.0-34.0); MEAN CORPUSCULAR HGB CONC 31.6 G/dL (31.0-37.0); MEAN CORPUSCULAR VOLUME 78 fL (80-100); MONOCYTES # (AUTO) 0.4 K/uL (0.1-1.0); MONOCYTES % (AUTO) 5.6 % (2.0-9.0); NEUTROPHILS # (AUTO) 6.3 K/uL (1.8-7.7); NEUTROPHILS % (AUTO) 81.2 % (40.0-70.0); PLATELET COUNT (AUTO) 209 K/uL (150-450); RED BLOOD CELL COUNT(AUTO) 4.09 MIL/uL (4.50-5.90); RED CELL DISTRIBUTION WIDTH 23.2 % (11.5-14.5); WHITE BLOOD COUNT (AUTO) 7.7 K/uL (4.5-11.0)
[2024-12-08] MEDS: DOLUTEGRAVIR SODIUM 50 MG TABLET PO SCH (09:17)
[2024-12-08 20:02] VITALS: BP 133/93; PULSE 58; RESP 16; TEMP 98.2; O2SAT 100
[2024-12-08] MEDS: ZOLPIDEM TARTRATE 10 MG TABLET PO PRN (20:03)
[2024-12-09 08:45] VITALS: BP 134/80; PULSE 60; RESP 16; TEMP 98.9; O2SAT 100
[2024-12-09 20:03] VITALS: BP 134/83; PULSE 65; RESP 17; TEMP 98.4
[2024-12-10 08:12] VITALS: BP 123/80; PULSE 65; RESP 18; TEMP 100; O2SAT 100
[2024-12-10 08:40] VITALS: RESP 18
[2024-12-10] MEDS: ACETAMINOPHEN 325 MG TABLET PO PRN (08:40)
[2024-12-10 09:40] VITALS: RESP 18; TEMP 97.8
[2024-12-10 19:40] LABS: GLUCOMETER DEV NAME(LOC) POC.BV; POC SARS-COV2 AG, FIA NEGATIVE (NEGATIVE)
[2024-12-10 21:38] VITALS: BP 130/100; PULSE 72; RESP 16; TEMP 98.1; O2SAT 98
[2024-12-11 08:31] VITALS: BP 128/88; PULSE 72; RESP 18; TEMP 98.4; O2SAT 97
[2024-12-11 09:26] LABS: INFLUENZA TYPE A NEGATIVE FOR TYPE A (NEGATIVE); INFLUENZA TYPE B NEGATIVE FOR TYPE B (NEGATIVE)
[2024-12-11 09:28] LABS: APPEARANCE,URINE TURBID (CLEAR); BILIRUBIN,URINE NEGATIVE (NEGATIVE); COLOR,URINE YELLOW (YELLOW); GLUCOSE, URINE (UA) NEGATIVE (NEGATIVE); KETONES,URINE NEGATIVE (NEGATIVE); LEUKOCYTE ESTERASE ,URINE NEGATIVE (NEGATIVE); NITRATE,URINE NEGATIVE (NEGATIVE); OCCULT BLOOD,URINE NEGATIVE (NEGATIVE); PH,URINE 7.5 (5.0-8.0); PH,URINE DRUG SCREEN 7.5 (5.0-8.0); PROTEIN,URINE TRACE mg/dL (NEGATIVE); SPECIFIC GRAVITIY, URINE 1.017 (1.003-1.030); UROBILINOGEN,URINE <=1.0 mg/dL (<=1.0)
[2024-12-11 09:42] LABS: ALCOHOL, URINE DRUG SCREEN NEGATIVE (NEGATIVE); AMPHET/METH SCREEN,URINE NEGATIVE (NEGATIVE); BARBITURATE SCREEN, URINE NEGATIVE (NEGATIVE); BENZODIAZEPINES SCREEN,URINE NEGATIVE (NEGATIVE); CANNABINOID SCREEN,URINE NEGATIVE (NEGATIVE); COCAINE SCREEN,URINE NEGATIVE (NEGATIVE); METHADONE SCREEN, URINE NEGATIVE (NEGATIVE); OPIATE SCREEN,URINE NEGATIVE (NEGATIVE); PHENCYCLIDINE SCREEN,URINE NEGATIVE (NEGATIVE)
== END 2024-12-11 13:02 | disposition home or self-care (01) | DRG 750 ==
LOC: B2S 12:35
PROVIDERS: ADMIT Psychiatry & Neurology Psychiatry; ATTEND Psychiatry & Neurology Psychiatry
PROC: GZHZZZZ Group Psychotherapy (ICD-10-PCS; principal; 2024-12-07)
PROC: GZ51ZZZ Individual Psychotherapy, Behavioral (ICD-10-PCS; 2024-12-07)
DX: F20.0 Paranoid schizophrenia (principal); R45.851 Suicidal ideations; Z21 Asymptomatic human immunodeficiency virus [HIV] infection status; I10 Essential (primary) hypertension; Z20.822 Contact with and (suspected) exposure to COVID-19; E78.5 Hyperlipidemia, unspecified; F41.9 Anxiety disorder, unspecified; K21.9 Gastro-esophageal reflux disease without esophagitis; Z85.47 Personal history of malignant neoplasm of testis
CPT/HCPCS: 80053; 80061; 80307; 81003; 83036; 84436; 84439; 84443; 85025; 86592; 87804